=== PATIENT | male | born 1995 | race African-American/Black ===

== ENCOUNTER 2023-09-05 15:33 | Emergency (ER) | payer MEDICAID ==
[~2023-09-05] VITALS: Ht 195.6 cm; Wt 136.4 kg
[2023-09-05 16:05] VITALS: TEMP 97.4
--- NOTE | 2023-09-05 16:23 | NUR ---
AK REPORTS TO THE ER FOR " CYST BEHIND LEFT EAR/JAW " PT REPORTS PAIN 8/10 PAIN ON LEFT JAW.
[2023-09-05] MEDS ORDERED: AMOX-117 PO (16:54)
--- NOTE | 2023-09-05 17:06 | NUR ---
pt assessment reviewed by RN
[2023-09-05 17:08] VITALS: BP 137/90; PULSE 77; RESP 18; O2SAT 97
== END 2023-09-05 17:10 | disposition home or self-care (01) ==
LOC: ER 15:34
DX: R68.84 Jaw pain (principal); Z79.899 Other long term (current) drug therapy
CPT/HCPCS: 99283